=== PATIENT | male | born 1980 | race Caucasian/White ===

== ENCOUNTER 2018-11-24 01:14 | Emergency (ER) | payer MEDICAID ==
[~2018-11-24] VITALS: Ht 175.3 cm; Wt 69.9 kg
[2018-11-24 01:17] VITALS: BP 132/89
--- NOTE | 2018-11-24 01:36 | NUR ---
RIGHT HAND LAC
[2018-11-24] MEDS ORDERED: LIDOCAINE-MPF 1%, 5ML ONE ×2 (01:54→02:36)
[2018-11-24] MEDS ORDERED: LIDOCAINE 1%-EPI 1:100K, 20ML INFIL ONE (02:00)
[2018-11-24] MEDS ORDERED: LIDOCAINE 1%, 10ML INFIL ONE (02:00)
[2018-11-24] MEDS ORDERED: LIDOCAINE 1%, 2ML INFIL ONE (03:00)
== END 2018-11-24 03:11 | disposition home or self-care (01) ==
LOC: ED 01:54
DX: S61.411A Laceration without foreign body of right hand, initial encounter (principal); W45.8XXA Other foreign body or object entering through skin, initial encounter; Y93.89 Activity, other specified; Y92.009 Unspecified place in unspecified non-institutional (private) residence as the place of occurrence of the external cause; Y99.8 Other external cause status
CPT/HCPCS: 12041; 99284